=== PATIENT | male | born 1930 | race Caucasian/White ===

== ENCOUNTER 2016-06-05 01:33 | Emergency (ER) | payer MEDICARE, OTHER ==
[~2016-06-05] VITALS: Ht 172.7 cm; Wt 62.7 kg
[~2016-06-05 01:33] MED LIST: ALPR.25 PO; ASPI81TA82 PO; DOXA1 PO
[2016-06-05 01:44] VITALS: BP 104/66; PULSE 94; RESP 14; TEMP 97.9; O2SAT 96
== END 2016-06-05 03:35 | disposition left against medical advice (07) ==
LOC: PHED 01:33
DX: R10.9 Unspecified abdominal pain (principal)
CPT/HCPCS: 99281

== ENCOUNTER 2016-06-07 10:02 | Inpatient (IN) | payer MEDICARE, OTHER ==
[2016-06-07] VITALS (7 sets, daily range): BP systolic 114–135; BP diastolic 76–88; PULSE 81–85; RESP 16–20; TEMP 96.2–97.4; O2SAT 95–98
[2016-06-07] MEDS ORDERED: SODIUM CHLORIDE 0.9% FLUSH 5 ML FLUSH IVF PRN (10:15)
[2016-06-07] MEDS ORDERED: ASPI1TAB69 PO (10:21)
[2016-06-07] MEDS ORDERED: DOXA1TAB35 PO (10:21)
--- NOTE | 2016-06-07 10:25 | PD ---
HPI Chief Complaint: Abdominal Pain Time Seen by Provider: 10:08 Travel History International Travel<30 days: No Contact w/Intl Traveler<30days: No Traveled to known affect area: No History of Present Illness HPI Patient 86-year-old male with history of mild dementia presents to emergency department today for evaluation of left lower quadrant abdominal pain intermittent over the past 4-5 days. He is a coming by his . Patient states that whenever he eats his abdomen and left lower quadrant hurts him whenever his stomach is empty feels better. Patient states that he came here yesterday and the weight was 3 hours and he didn't want to wait that long and left without being seen. This morning he started complaining of abdominal pain again and his called 911 to bring him to the emergency department. Patient currently states he is not having any abdominal pain at all. No fevers no diarrhea no constipation no blood in the stool per the patient. Patient's arrives and states that he does have a history of some mild dementia and she became concerned as the abdominal pain has lasted this long and wanted him to be seen today. PFSH Past Medical History Arthritis: No Asthma: No Autoimmune Disease: No Blood Disorders: No Anxiety: Yes Depression: No Heart Rhythm Problems: No Cancer: No Cardiovascular Problems: No High Cholesterol: Yes Chemotherapy: No Chest Pain: Yes Congestive Heart Failure: No COPD: No Cerebrovascular Accident: Yes (TIA ) Diabetes: No Diminished Hearing: Yes Endocrine: No Gastrointestinal Disorders: Yes (ENLARGED PROSTATE) GERD: No Glaucoma: No Genitourinary: Yes Headaches: No Hepatitis: No Hiatal Hernia: No Heparin Induced Thrombocytopen: No Hypertension: Yes Immune Disorder: No Implanted Vascular Access Dvce: No Kidney Stones: No Musculoskeletal: Yes (BPH) Neurologic: Yes Psychiatric: Yes Reproductive: No Respiratory: No Immunizations Current: Yes Migraines: No Myocardial Infarction: No Radiation Therapy: No Renal Failure: No Seizures: No Sickle Cell Disease: No Sleep Apnea: No Thyroid Disease: No Ulcer: No PNEUMOCCOCAL Vaccine (Year): 2 Past Surgical History Abdominal Surgery: No AICD: No Appendectomy: No Arteriovenous Shunt: No Cardiac Surgery: No Cholecystectomy: No Ear Surgery: No Endocrine Surgery: No Eye Surgery: Yes (CATARACTS BOTH EYES) Genitourinary Surgery: Yes (PROSTATE (LASER) SURGERY X 2) Gynecologic Surgery: No Insulin Pump: No Joint Replacement: No Neurologic Surgery: No Oral Surgery: No Pacemaker: No Thoracic Surgery: No Other Surgery: Yes Social History Alcohol Use: No Tobacco Use: No Substance Use: No Allergies-Medications (Allergen,Severity, Reaction): Coded Allergies: Scallop (Verified Adverse Reaction, Mild, NAUSEA, 06/07/16) Reported Meds & Prescriptions Reported Meds & Active Scripts Active Reported Doxazosin (Doxazosin Mesylate) 2 Mg Tab 2 Mg PO HS Aspirin 81 Mg Tabdr 81 Mg PO DAILY Review of Systems Except as stated in HPI: all other systems reviewed are Neg Physical Exam Narrative GENERAL: Well-developed, thin but in no apparent distress. SKIN: Warm and dry. HEAD: Atraumatic. Normocephalic. EYES: Pupils equal and round. No scleral icterus. No injection or drainage. ENT: No nasal bleeding or discharge. Mucous membranes pink and moist. NECK: Trachea midline. No JVD. CARDIOVASCULAR: Regular rate but irregularly irregular.. No murmur appreciated. 2+ bilateral equal pulses in all 4 extremities. RESPIRATORY: No accessory muscle use. Clear to auscultation. Breath sounds equal bilaterally. GASTROINTESTINAL: Abdomen soft, moderately tender in the left lower quadrant without any rebound or percussive tenderness. nondistended. Hepatic and splenic margins not palpable. Skin normal. MUSCULOSKELETAL: No obvious deformities. No clubbing. No cyanosis. Minimal edema in bilateral lower extremities. NEUROLOGICAL: Awake and alert. No obvious cranial nerve deficits. Motor grossly within normal limits. Normal speech. PSYCHIATRIC: Appropriate mood and affect; insight and judgment normal. Data Data Last Documented VS Vital Signs Date Time Temp Pulse Resp B/P Pulse Ox O2 Delivery O2 Flow Rate FiO2 06/07/16 13:03 85 18 131/88 98 Room Air 06/07/16 10:13 97.4 Orders Complete Blood Count With Diff (06/07/16 10:08) Comprehensive Metabolic Panel (06/07/16 10:08) Lipase (06/07/16 10:08) Lactic Acid (06/07/16 10:08) Prothrombin Time / Inr (Pt) (06/07/16 10:08) Act Partial Throm Time (Ptt) (06/07/16 10:08) Urinalysis - C+S If Indicated (06/07/16 10:08) Ct Abd/Pel W Iv Contrast(Rout) (06/07/16 10:08) Iv Access Insert/Monitor (06/07/16 10:08) Ecg Monitoring (06/07/16 10:08) Oximetry (06/07/16 10:08) Sodium Chloride 0.9% Flush (Ns Flush) (06/07/16 10:15) Electrocardiogram (06/07/16 10:08) Troponin I (06/07/16 10:41) Iohexol 350 Inj (Omnipaque 350 Inj) (06/07/16 11:52) Chest, Single Ap (06/07/16 ) Sodium Chlorid 0.9% 500 Ml Inj (Ns 500 M (06/07/16 12:30) Admit Order (Ed Use Only) (06/07/16 ) Labs Laboratory Tests Test 06/07/16 10:38 White Blood Count 21.3 TH/MM3 Red Blood Count 7.00 MIL/MM3 Hemoglobin 16.4 GM/DL Hematocrit 52.5 % Mean Corpuscular Volume 74.9 FL Mean Corpuscular Hemoglobin 23.4 PG Mean Corpuscular Hemoglobin 31.2 % Concent Red Cell Distribution Width 19.6 % Platelet Count 426 TH/MM3 Mean Platelet Volume 9.0 FL Neutrophils (%) (Auto) 85.4 % Lymphocytes (%) (Auto) 4.1 % Monocytes (%) (Auto) 3.5 % Eosinophils (%) (Auto) 3.3 % Basophils (%) (Auto) 3.7 % Neutrophils # (Auto) 18.1 TH/MM3 Lymphocytes # (Auto) 0.9 TH/MM3 Monocytes # (Auto) 0.7 TH/MM3 Eosinophils # (Auto) 0.7 TH/MM3 Basophils # (Auto) 0.8 TH/MM3 CBC Comment AUTO DIFF Differential Comment AUTO DIFF CONFIRMED Prothrombin Time 20.2 SEC Prothromb Time International 1.8 RATIO Ratio Activated Partial 58.3 SEC Thromboplast Time Urine Collection Type CLEAN CATCH Urine Color YELLOW Urine Turbidity CLEAR Urine pH 5.5 Urine Specific [place] 1.018 Urine Protein NEG mg/dL Urine Glucose (UA) NEG mg/dL Urine Ketones NEG mg/dL Urine Occult Blood NEG Urine Nitrite NEG Urine Bilirubin NEG Urine Leukocyte Esterase TRACE Urine RBC 0-3 /hpf Urine WBC 0-2 /hpf Urine Squamous Epithelial 0-5 /hpf Cells Microscopic Urinalysis Comment CULT NOT INDICATED Sodium Level 140 MEQ/L Potassium Level 4.4 MEQ/L Chloride Level 105 MEQ/L Carbon Dioxide Level 27.9 MEQ/L Anion Gap 7 MEQ/L Blood Urea Nitrogen 35 MG/DL Creatinine 1.60 MG/DL Estimat Glomerular Filtration 41 ML/MIN Rate Random Glucose 73 MG/DL Lactic Acid Level 0.9 mmol/L Calcium Level 8.1 MG/DL Total Bilirubin 2.0 MG/DL Aspartate Amino Transf 9 U/L (AST/SGOT) Alanine Aminotransferase 8 U/L (ALT/SGPT) Alkaline Phosphatase 40 U/L Troponin I LESS THAN 0.02 NG/ML Total Protein 5.0 GM/DL Albumin 3.0 GM/DL Lipase 50 U/L [facility] Medical Decision Making Medical Screen Exam Complete: Yes Emergency Medical Condition: Yes Interpretation(s) EKG shows 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 Patient has indeterminate access and normal R-wave progression. No concerning ST T changes. This is an abnormal EKG. comparison to 09/10/2015 patient now and second degree type I otherwise no significant change. A monitor patient is atrial fibrillation with no discernible P waves. Differential Diagnosis Kidney stone, diverticulitis, diverticulosis, bowel obstruction, lecture light abnormality, acute kidney injury. Narrative Course Patient was roomed in the emergency department, suspicion for diverticulitis given his history that his pain gets worse when he eats. Pain is predominantly in the left lower quadrant. Patient is a history of dementia but gives a fairly accurate history which his confirms. CT scan does show an obstructing 4 mm kidney stone in the mid ureter on the left side which could explain his symptoms but certainly would not explain while his pain gets worse when he eats. Patient was discussed with Dr. Cao who is on-call for the urology service and currently the patient would like to try passage on his own. For that reason he can stay in [facility]. 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 Dr. Cao will see later this evening. Patient will be admitted to Dr. Preethi العلي. Diagnosis Primary Impression: Abdominal pain Qualified Code: R10.32 - Left lower quadrant pain Additional Impressions: Kidney stone Leukocytosis Admitting Information Admitting Physician Requests: Admit Condition: Stable Saleem Lawrence MDb 9, 2017 10:25
[2016-06-07 10:45] LABS: AUTOMATED NEUTROPHIL # 18.1 TH/MM3 (1.8-7.7); BASOPHIL # 0.8 TH/MM3 (0-0.2); BASOPHIL % 3.7 % (0.0-2.0); EOSINOPHIL # 0.7 TH/MM3 (0-0.4); EOSINOPHIL % 3.3 % (0.0-4.0); HEMATOCRIT 52.5 % (39.0-51.0); LYMPH % 4.1 % (9.0-44.0); LYMPHOCYTE # 0.9 TH/MM3 (1.0-4.8); MEAN CELL VOLUME 74.9 FL (80.0-100.0); MEAN CORPUSCULAR HEMOGLOBIN 23.4 PG (27.0-34.0); MEAN CORPUSCULAR HGB CONC 31.2 % (32.0-36.0); MONO % 3.5 % (0.0-8.0); NEUT % 85.4 % (16.0-70.0); PLATELET COUNT 426 TH/MM3 (150-450); RED CELL DISTRIBUTION WIDTH 19.6 % (11.6-17.2); WHITE BLOOD COUNT 21.3 TH/MM3 (4.0-11.0)
[2016-06-07 10:49] LABS: HEMO FLAGS AUTO DIFF
[2016-06-07 10:54] LABS: BLOOD, URINE NEG (NEG); GLUCOSE,URINE NEG (NEG); KETONE, URINE NEG (NEG); NITRITE,URINE NEG (NEG); PH, URINE 5.5 (5.0-8.5)
[2016-06-07 10:57] LABS: METHOD OF COLLECTION CLEAN CATCH; URINE COLOR YELLOW (YELLW/STRAW)
[2016-06-07 10:58] LABS: COMMENT (UR) CULT NOT INDICATED; CULTURE IF INDICATED CULT NOT INDICATED; RBC, URINE 0-3 /hpf (0-3); SQUAMOUS EPITHELIAL CELL URINE 0-5 /hpf (0-5); WBC, URINE 0-2 /hpf (0-5)
[2016-06-07 11:01] LABS: CHLORIDE 105 MEQ/L (98-107); POTASSIUM 4.4 MEQ/L (3.5-5.1); SODIUM (NA) 140 MEQ/L (136-145)
[2016-06-07 11:05] LABS: ANION GAP 7 MEQ/L (5-15); APTT (PATIENT) 58.3 SEC (24.3-30.1); BICARBONATE 27.9 MEQ/L (21.0-32.0); INTERNATIONAL NORMALIZED RATIO 1.8 RATIO; PROTHROMBIN TIME - PATIENT 20.2 SEC (9.8-11.6)
[2016-06-07 11:06] LABS: BLOOD UREA NITROGEN 35 MG/DL (7-18)
[2016-06-07 11:08] LABS: ALT (GPT) 8 U/L (12-78); AST (GOT) 9 U/L (15-37); GLOMERULAR FILTRATION RATE 41 ML/MIN (>89)
[2016-06-07 11:11] LABS: ALKALINE PHOSPHATASE 40 U/L (45-117)
[2016-06-07 11:13] LABS: SCAN/DIFF AUTO DIFF CONFIRMED
[2016-06-07] MEDS ORDERED: IOHEXOL 350 MG/ML 10 ML VIAL (for RAD DIAG) IV ONE (11:52)
--- NOTE | 2016-06-07 12:21 | RADHPO ---
EXAM DATE/TIME: 06/07/2016 11:39 [facility] COMPARISON: No previous studies available for comparison. INDICATIONS: Left lower quadrant pain. IV CONTRAST: 70 cc Omnipaque 350 (iohexol) IV ORAL CONTRAST: No oral contrast ingested. RADIATION DOSE: 12.21 CTDIvol (mGy) MEDICAL HISTORY: Dementia. Hypertension. Cerebrovascular disease. SURGICAL HISTORY: None. ENCOUNTER: Initial ACUITY: 4 - 6 days PAIN SCALE: 6/10 LOCATION: Left lower quadrant TECHNIQUE: Volumetric scanning of the abdomen and pelvis was performed. Using automated exposure control and ad justment of the mA and/or kV according to patient size, radiation dose was kept as low as reasonably achievable to obtain optimal diagnostic quality images. FINDINGS: There is moderate hydronephrosis on the left with possible 4 mm calcified obstructing calculus in the left distal ureter. There are also multiple larger non-obstructing left renal calculi with the larg est of these measuring 13 mm. Multiple left renal cysts are also noted with the largest measuring 8. 9 cm. There is massive splenomegaly. The spleen measures 21.1 x 12.1 cm in greatest dimension. Thi s results in displacement of the left kidney medially and inferiorly. Cholelithiasis is noted. Some ascites is noted within the pelvis. There is a small left pleural effusion and tiny right pleural effusion. Bibasilar fibrotic scarring and/or atelectasis is noted. The heart is enlarged. Coronary artery calcifications are noted. Dege nerative changes and scoliosis of the lumbar spine are noted. The pancreas is atrophic. The adrenal glands are unremarkable. The right kidney is normal in size and contains several tiny cysts. The a bdominal aorta is calcified and ectatic but demonstrates no significant aneurysmal dilatation. The u rinary bladder is unremarkable. The prostate gland is unremarkable. No pelvic lymphadenopathy is no verónica. CONCLUSION: 1. Moderate hydronephrosis on the left with possible obstructing calcified distal ureteral calculus measuring 4 mm. Clinical correlation is recommended. 2. Massive splenomegaly. 3. Multiple calcified non-obstructing left renal calculi. 4. Bilateral renal cysts. 5. Cholelithiasis. 6. Small left pleural effusion and tiny right pleural effusion. 7. Bibasilar atelectasis and/or fibrotic scarring. 8. Cardiomegaly and coronary artery calcifications. 9. Degenerative changes and scoliosis of the thoracolumbar spine. 10. Minimal ascites within the pelvis. Saleem Juarez MD on June 07, 2016 at 11:59 Board Certified Radiologist. This report was verified electronically.
[2016-06-07] MEDS ORDERED: SODIUM CHLORID 0.9% 500 ML INJ 500 ML IV ONE (12:30)
--- NOTE | 2016-06-07 13:00 | RADHPO ---
EXAM DATE/TIME: 06/07/2016 12:03 [facility] COMPARISON: CHEST SINGLE AP, September 10, 2015, 11:34. INDICATIONS: Cough. Abdominal pain. MEDICAL HISTORY: Hypertension. Hypercholesterolemia. TIA. SURGICAL HISTORY: Cataract surgery. ENCOUNTER: Initial ACUITY: 4 - 6 days PAIN SCORE: 0/10 LOCATION: Chest FINDINGS: The heart remains enlarged. There is elevation of the left hemidiaphragm which is stable. The pulmo nary vascular pattern is normal. The lungs are clear. CONCLUSION: 1. Cardiomegaly. 2. Elevation of the left hemidiaphragm which is chronic. 3. No acute focal pulmonary infiltrate or pulmonary vascular congestion. Saleem Juarez MD on June 07, 2016 at 12:49 Board Certified Radiologist. This report was verified electronically.
[2016-06-07] MEDS: SODIUM CHLOR 0.9% 1000 ML INJ 1,000 ML IV SCH (15:12)
[2016-06-07] MEDS ORDERED: ONDANSETRON HCL 4 MG/2 ML VIAL IVP PRN (15:15)
[2016-06-07] MEDS ORDERED: ACETAMINOPHEN 325 MG TAB PO PRN (15:15)
--- NOTE | 2016-06-07 15:18 | HHI.HP ---
cc: Stone Ordonez MD [facility] Service [place] [facility] Physician Stone Ordonez MD Admission Diagnosis ANN, dehydration. Diagnoses: Chief Complaint: Abdominal pain Travel History International Travel<30 Days: No Contact w/Intl Traveler <30 Da: No Traveled to Known Affected Are: No History of Present Illness This patient's 86-year-old gentleman with a known history of mild cognitive impairment has come in with abdominal pain over the last 4 days. He had some nausea and constipation which was worse when he ate. Patient says that he he has not had any emesis, melena or hematuria to assist in the patient has come to the emergency room 2 days in a row for evaluation of same. He hasn't found to have a 4 mm obstructing renal stone. He does have a history of kidney stone in the past but has not had active one quite some time. Patient notes no fevers or chills or dysuria. He does have a history of benign prostatic hyperplasia but is under treatment for this. Patient was admitted through the emergency room for further evaluation of his severe abdominal pain which is relieved with resting his bowels and aggravated with eating. Review of Systems Constitutional: DENIES: Diaphoretic episodes, Fatigue, Fever, Weight gain, Weight loss, Chills, Dizziness, Change in appetite, Night Sweats Endocrine: DENIES: Heat/cold intolerance, Polydipsia, Polyuria, Polyphagia Eyes: DENIES: Blurred vision, Diplopia, Eye inflammation, Eye pain, Vision loss , Photosensitivity, Double Vision Ears, nose, mouth, throat: DENIES: Tinnitus, Hearing loss, Vertigo, Nasal discharge, Oral lesions, Throat pain, Hoarseness, Ear Pain, Running Nose, Epistaxis, Sinus Pain, Toothache, Odynophagia Respiratory: DENIES: Apneas, Cough, Snoring, Wheezing, Hemoptysis, Sputum production, Shortness of breath Cardiovascular: DENIES: Chest pain, Palpitations, Syncope, Dyspnea on Exertion , PND, Lower Extremity Edema, Orthopnea, Claudication Gastrointestinal: COMPLAINS OF: Abdominal pain, Constipation, Nausea, DENIES: Black stools, Bloody stools, Diarrhea, Vomiting, Difficulty Swallowing, Anorexia Genitourinary: DENIES: Sexual dysfunction, Urinary frequency, Urinary incontinence, Urgency, Hematuria, Dysuria, Nocturia, Penile Discharge, Testicular Pain, Testicular Swelling Musculoskeletal: COMPLAINS OF: Back pain, DENIES: Joint pain, Muscle aches, Stiffness, Joint Swelling, Neck pain Integumentary: DENIES: Abnormal pigmentation, Nail changes, Pruritus, Rash Hematologic/lymphatic: DENIES: Bruising, Lymphadenopathy Immunologic/allergic: DENIES: Eczema, Urticaria Neurologic: DENIES: Abnormal gait, Headache, Localized weakness, Paresthesias, Seizures, Speech Problems, Tremor, Poor Balance Psychiatric: DENIES: Anxiety, Confusion, Mood changes, Depression, Hallucinations, Agitation, Suicidal Ideation, Homicidal Ideation, Delusions Past Family Social History Past Medical History History of CVA Hypertension Chronic kidney disease stage II BPH Splenomegaly Myelogenous leukemia History of kidney stones Past Surgical History Cataract surgery prostate surgery Reported Medications Reviewed in the medical record, nothing new Allergies: Coded Allergies: Scallop (Verified Adverse Reaction, Mild, NAUSEA, 06/07/16) Active Ordered Medications Reviewed in the medical Physical Exam Vital Signs Vital Signs Date Time Temp Pulse Resp B/P Pulse Ox O2 Delivery O2 Flow Rate FiO2 06/07/16 13:03 85 18 131/88 98 Room Air 06/07/16 10:16 98 Room Air 06/07/16 10:13 97.4 84 16 135/84 95 Physical Exam GENERAL: This is an elderly well-nourished, well-developed patient, in no apparent distress. SKIN: No rashes, ecchymoses or lesions. Cool and dry. HEAD: Atraumatic. Normocephalic. No temporal or scalp tenderness. EYES: Pupils equal round and reactive. Extraocular motions intact. No scleral icterus. No injection or drainage. ENT: Nose without bleeding, purulent drainage or septal hematoma. Throat without erythema, tonsillar hypertrophy or exudate. Uvula midline. Airway patent. NECK: Trachea midline. No JVD or lymphadenopathy. Supple, nontender, no meningeal signs. CARDIOVASCULAR: Regular rate and rhythm without murmurs, gallops, or rubs. RESPIRATORY: Clear to auscultation. Breath sounds equal bilaterally. No wheezes , rales, or rhonchi. GASTROINTESTINAL: Abdomen soft, non-tender, nondistended. No hepatosplenomegaly on exam, hypoactive bowel sounds, or palpable masses. No guarding. MUSCULOSKELETAL: Extremities without clubbing, cyanosis, or edema. No joint tenderness, effusion, or edema noted. No calf tenderness. Negative Homans sign bilaterally. NEUROLOGICAL: Awake and alert. Cranial nerves II through XII intact. Motor and sensory grossly within normal limits. Five out of 5 muscle strength in all muscle groups. Normal speech. Laboratory Laboratory Tests Test 06/07/16 10:38 White Blood Count 21.3 Red Blood Count 7.00 Hemoglobin 16.4 Hematocrit 52.5 Mean Corpuscular Volume 74.9 Mean Corpuscular Hemoglobin 23.4 Mean Corpuscular Hemoglobin 31.2 Concent Red Cell Distribution Width 19.6 Platelet Count 426 Mean Platelet Volume 9.0 Neutrophils (%) (Auto) 85.4 Lymphocytes (%) (Auto) 4.1 Monocytes (%) (Auto) 3.5 Eosinophils (%) (Auto) 3.3 Basophils (%) (Auto) 3.7 Neutrophils # (Auto) 18.1 Lymphocytes # (Auto) 0.9 Monocytes # (Auto) 0.7 Eosinophils # (Auto) 0.7 Basophils # (Auto) 0.8 CBC Comment AUTO DIFF Differential Comment AUTO DIFF CONFIRMED Prothrombin Time 20.2 Prothromb Time International 1.8 Ratio Activated Partial 58.3 Thromboplast Time Urine Collection Type CLEAN CATCH Urine Color YELLOW Urine Turbidity CLEAR Urine pH 5.5 Urine Specific [place] 1.018 Urine Protein NEG Urine Glucose (UA) NEG Urine Ketones NEG Urine Occult Blood NEG Urine Nitrite NEG Urine Bilirubin NEG Urine Leukocyte Esterase TRACE Urine RBC 0-3 Urine WBC 0-2 Urine Squamous Epithelial 0-5 Cells Microscopic Urinalysis Comment CULT NOT INDICATED Sodium Level 140 Potassium Level 4.4 Chloride Level 105 Carbon Dioxide Level 27.9 Anion Gap 7 Blood Urea Nitrogen 35 Creatinine 1.60 Estimat Glomerular Filtration 41 Rate Random Glucose 73 Lactic Acid Level 0.9 Calcium Level 8.1 Total Bilirubin 2.0 Aspartate Amino Transf 9 (AST/SGOT) Alanine Aminotransferase 8 (ALT/SGPT) Alkaline Phosphatase 40 Troponin I LESS THAN 0.02 Total Protein 5.0 Albumin 3.0 Lipase 50 Result Diagram: 06/07/16 1038 06/07/16 1038 Imaging Last Impressions Abdomen/Pelvis CT 06/07/16 1008 Signed Impressions: Service Date/Time: May 11:39 - CONCLUSION: 1. Moderate hydronephrosis on the left with possible obstructing calcified distal ureteral calculus measuring 4 mm. Clinical correlation is recommended. 2. Massive splenomegaly. 3. Multiple calcified non-obstructing left renal calculi. 4. Bilateral renal cysts. 5. Cholelithiasis. 6. Small left pleural effusion and tiny right pleural effusion. 7. Bibasilar atelectasis and/or fibrotic scarring. 8. Cardiomegaly and coronary artery calcifications. 9. Degenerative changes and scoliosis of the thoracolumbar spine. 10. Minimal ascites within the pelvis. Saleem Juarez MD Chest X-Ray 06/07/16 0000 Signed Impressions: Service Date/Time: , June 07, 2016 12:03 - CONCLUSION: 1. Cardiomegaly. 2. Elevation of the left hemidiaphragm which is chronic. 3. No acute focal pulmonary infiltrate or pulmonary vascular congestion. Saleem Juarez MD Assessment and Plan Problem List: (1) Chronic myelogenous leukemia (CML), [id number] ICD Code: C92.10 Status: Acute Plan: Patient has refused prior workup of this although he is aware of the diagnosis. At this time we'll continue with surveillance (2) Kidney stone ICD Code: N20.0 Status: Acute Plan: Continue with IV hydration, follow up straining urine Urology consultation appreciated (3) Abdominal pain ICD Code: R10.9 Status: Acute Plan: may be due to constipation IVF add lactulose Physician Certification 2 Midnight Certification Type: Admission for Inpatient Services Order for Inpatient Services The services are ordered in accordance with Medicare regulations or non- Medicare payer requirements, as applicable. In the case of services not specified as inpatient-only, they are appropriately provided as inpatient services in accordance with the 2-midnight benchmark. Estimated LOS (days): 5 5 days is the estimated time the patient will need to remain in the hospital, assuming treatment plan goals are met and no additional complications. Post-Hospital Plan: Preethi Gould MD Jun 07, 2016 15:18
[2016-06-07] MEDS: PANTOPRAZOLE SOD 40 MG DELAYED RELEASE TAB PO SCH (16:32)
[2016-06-07] MEDS: cefTRIAXone INJ 1,000 MG in SODIUM CHLORIDE 0.9% INJ 100 ML IV SCH (16:32)
[2016-06-07] MEDS: LACTULOSE SYRUP 20 GM/30 ML CUP PO SCH ×2 (17:37→20:54)
[2016-06-07] MEDS: SODIUM CHLORIDE 0.9% FLUSH 5 ML FLUSH FLUSH SCH (20:54)
[2016-06-08] VITALS: BP 116/66; PULSE 80; RESP 20; TEMP 96.7; O2SAT 97
[2016-06-08] MEDS: SODIUM CHLOR 0.9% 1000 ML INJ 1,000 ML IV SCH ×3 (01:12→21:12)
[2016-06-08 06:37] LABS: AUTOMATED NEUTROPHIL # 21.1 TH/MM3 (1.8-7.7); BASOPHIL # 0.3 TH/MM3 (0-0.2); BASOPHIL % 1.3 % (0.0-2.0); EOSINOPHIL # 0.7 TH/MM3 (0-0.4); LYMPH % 3.7 % (9.0-44.0); LYMPHOCYTE # 0.9 TH/MM3 (1.0-4.8); MEAN CELL VOLUME 75.6 FL (80.0-100.0); MEAN CORPUSCULAR HEMOGLOBIN 23.3 PG (27.0-34.0); MEAN CORPUSCULAR HGB CONC 30.8 % (32.0-36.0); MONO % 3.2 % (0.0-8.0); NEUT % 88.8 % (16.0-70.0); PLATELET COUNT 545 TH/MM3 (150-450); RED CELL DISTRIBUTION WIDTH 19.8 % (11.6-17.2); WHITE BLOOD COUNT 23.8 TH/MM3 (4.0-11.0)
[2016-06-08 06:47] LABS: HEMATOCRIT 58.8 % (39.0-51.0); HEMO FLAGS AUTO DIFF; RED BLOOD COUNT 7.78 MIL/MM3 (4.50-5.90)
[2016-06-08 06:58] LABS: POTASSIUM 4.5 MEQ/L (3.5-5.1)
[2016-06-08 07:01] LABS: BICARBONATE 26.7 MEQ/L (21.0-32.0)
[2016-06-08 07:18] LABS: SCAN/DIFF AUTO DIFF CONFIRMED
[2016-06-08 07:50] VITALS: O2SAT 96
[2016-06-08 08:00] VITALS: BP 109/73; PULSE 85; RESP 18; TEMP 96.2; O2SAT 96
[2016-06-08] MEDS: LACTULOSE SYRUP 20 GM/30 ML CUP PO SCH ×2 (08:30→11:13)
[2016-06-08] MEDS: PANTOPRAZOLE SOD 40 MG DELAYED RELEASE TAB PO SCH (08:33)
[2016-06-08] MEDS: SODIUM CHLORIDE 0.9% FLUSH 5 ML FLUSH FLUSH SCH ×2 (08:33→20:15)
--- NOTE | 2016-06-08 10:25 | HHI.PR ---
Subjective Remarks Patient still complaining of abdominal pain worse when he eats. Patient without nausea or vomiting. No flank pain. Care plan discussed with Heidi RN and with spouse at bedside. Dr. Cao, urology is aware and has recommended patient attempted to pass a stone in follow-up as an outpatient. Objective Vitals Vital Signs Date Time Temp Pulse Resp B/P Pulse Ox O2 Delivery O2 Flow Rate FiO2 06/08/16 08:00 96.2 85 18 109/73 96 06/08/16 00:00 96.7 80 20 116/66 97 Automatic Cuff 06/07/16 20:00 96.2 85 20 114/84 95 06/07/16 19:50 97 06/07/16 17:18 97 21 06/07/16 15:52 81 18 132/76 97 Room Air 06/07/16 13:03 85 18 131/88 98 Room Air I/O 06/07/16 06/07/16 06/07/16 06/08/16 06/08/16 06/08/16 07:00 15:00 23:00 07:00 15:00 23:00 Intake Total 500 ml 120 ml 60 ml Output Total 200 ml 80 ml 525 ml Balance 300 ml 40 ml -465 ml Intake Oral 120 ml 60 ml IV Total 500 ml Output Urine Total 200 ml 80 ml 525 ml # Voids 1 1 5 # Bowel Movements 3 0 Result Diagram: 06/08/16 0558 06/08/16 0558 Imaging Last Impressions Abdomen/Pelvis CT 06/07/16 1008 Signed Impressions: Service Date/Time: May 11:39 - CONCLUSION: 1. Moderate hydronephrosis on the left with possible obstructing calcified distal ureteral calculus measuring 4 mm. Clinical correlation is recommended. 2. Massive splenomegaly. 3. Multiple calcified non-obstructing left renal calculi. 4. Bilateral renal cysts. 5. Cholelithiasis. 6. Small left pleural effusion and tiny right pleural effusion. 7. Bibasilar atelectasis and/or fibrotic scarring. 8. Cardiomegaly and coronary artery calcifications. 9. Degenerative changes and scoliosis of the thoracolumbar spine. 10. Minimal ascites within the pelvis. Saleem Juarez MD Chest X-Ray 06/07/16 0000 Signed Impressions: Service Date/Time: May 12:03 - CONCLUSION: 1. Cardiomegaly. 2. Elevation of the left hemidiaphragm which is chronic. 3. No acute focal pulmonary infiltrate or pulmonary vascular congestion. Saleem Juarez MD Objective Remarks GENERAL: This is a elderly, well-developed patient, in no apparent distress. CARDIOVASCULAR: Regular rate and rhythm without murmurs, gallops, or rubs. RESPIRATORY: Clear to auscultation. Breath sounds equal bilaterally. No wheezes , rales, or rhonchi. GASTROINTESTINAL: Abdomen soft, RUQ is tender, nondistended. hypo active bowel sounds MUSCULOSKELETAL: Erythema in both legs tian down, some swelling, no pain, upper Extremities without clubbing, cyanosis, or edema. NEURO: Mild dementia, [place], Alert & Oriented x4 to person, place, time, situation. Moves all ext x4 A/P Problem List: (1) Chronic myelogenous leukemia (CML), [id number] ICD Code: C92.10 Status: Acute Plan: Patient has chronic leukocytosis and splenomegaly Patient has refused prior workup of this although he is aware of the diagnosis. At this time we'll continue with surveillance Is unclear the worsening leukocytosis from his CML versus sepsis. Rule out acute cholecystitis, urine is clear, chest x-ray is unremarkable (2) Kidney stone ICD Code: N20.0 Status: Acute Plan: Continue with IV hydration, follow up straining urine Urology aware. Patient will follow-up as an outpatient if no change condition (3) Abdominal pain ICD Code: R10.9 Status: Acute Plan: may be due to constipation versus gallbladder disease Repeat LFTs in a.m. Ultrasound gallbladder IVF BM x3 with lactulose Add Morphine IV Assessment and Plan Issues with cognitive impairment/mild dementia. His is his power of trial attorney. Preethi العلي MD Jun 08, 2016 10:25
[2016-06-08] MEDS ORDERED: MORPHINE SULFATE 4 MG/ML INJ IV PUSH ONE (10:30)
[2016-06-08] MEDS: CIPROFLOXACIN 400 MG PREMIX 200 ML IV SCH ×2 (11:13→23:43)
[2016-06-08 12:00] VITALS: BP 105/64; PULSE 76; RESP 18; TEMP 96.5; O2SAT 97
[2016-06-08 16:00] VITALS: BP 131/78; PULSE 98; RESP 18; TEMP 97.3; O2SAT 97
[2016-06-08] MEDS: cefTRIAXone INJ 1,000 MG in SODIUM CHLORIDE 0.9% INJ 100 ML IV SCH (16:52)
--- NOTE | 2016-06-08 18:46 | RADHPO ---
EXAM DATE/TIME: 06/08/2016 17:19 [place] COMPARISON: No previous studies available for comparison. INDICATIONS : Right upper quadrant pain. MEDICAL HISTORY : Hypercholesterolemia. Hypertension. Transient ischemic attack. Kidney stones. BPH. SURGICAL HISTORY : Cataract removal. Prostate surgery. ENCOUNTER: Initial ACUITY: 1 day PAIN SCORE: 5/10 LOCATION: Right upper quadrant MEASUREMENTS: LIVER: 19.0 cm length COMMON DUCT: 7 mm RIGHT KIDNEY: 10.9 x 5.0 x 5.8 cm FINDINGS: The wall of the gallbladder is thickened. Pericholecystic fluid is noted. No sonographic Omalley's si gn is noted. If there is clinical concern for acute cholecystitis a hepatobiliary scan may be helpfu l to confirm cystic duct obstruction. Gallstones are noted within the gallbladder lumen. The liver is enlarged. There is a cyst within the left lobe measuring 1.7 x 1.6 x 1.3 cm. There is no solid he patic mass. No biliary ductal dilatation is noted. The common bile duct is normal. The pancreas is echogenic and difficult to evaluate due to shadowing bowel gas. Bidirectional flow is noted within the main portal vein. The main portal vein appears somewhat dilated. The right kidney contains two cystic lesions measuring 9 and 7 mm. No hydronephrosis is noted within the right kidney. There is m ild to moderate hydronephrosis of the left kidney with shadowing calculi identified as well as a larg e renal cyst on the left measuring 9.3 cm. CONCLUSION: 1. Thick-walled gallbladder with pericholecystic fluid suggesting possible cholecystitis. Clinical c orrelation is recommended. A hepatobiliary scan may be helpful to confirm cystic duct obstruction if clinically indicated. 2. Hydronephrosis of the left kidney with multiple renal calculi noted on the left. The largest calc james measure 16 and 14 mm. 3. Large left renal cyst measuring 9.3 cm. 4. Hepatomegaly and mild fatty infiltration. 5. Bidirectional flow within a dilated main portal vein. 6. Left lobe hepatic cyst and right renal cysts. Saleem Juarez MD on June 08, 2016 at 18:34 Board Certified Radiologist. This report was verified electronically.
[2016-06-08 19:37] VITALS: O2SAT 94
[2016-06-09] VITALS (7 sets, daily range): BP systolic 113–131; BP diastolic 65–85; PULSE 80–94; RESP 16–20; TEMP 96–97.8; O2SAT 93–97
[2016-06-09] MEDS: SODIUM CHLOR 0.9% 1000 ML INJ 1,000 ML IV SCH ×3 (07:12→20:11)
--- NOTE | 2016-06-09 08:53 | EKG ---
Date Performed: 06/07/2016 Time Performed: 10:17:14 PTAGE: 86 years EKG: First degree AV block with CO interval of 0.30 Right bundle branch block Nonspecific ST-T c hange Possible inferior infarct - age undetermined Abnormal ECG PREVIOUS TRACING : 09/10/2015 11.14 Compared to previous tracing, PVCs are no longer present. O therwise, no significant change. DOCTOR: Maxwell Du Interpretating Date/Time 06/09/2016 08:52:03
[2016-06-09] MEDS: SODIUM CHLORIDE 0.9% FLUSH 5 ML FLUSH FLUSH SCH ×2 (09:00→20:15)
[2016-06-09] MEDS: PANTOPRAZOLE SOD 40 MG DELAYED RELEASE TAB PO SCH (09:16)
[2016-06-09] MEDS ORDERED: MORPHINE SULFATE 4 MG/ML INJ IV PUSH PRN (11:30)
--- NOTE | 2016-06-09 11:32 | HHI.PR ---
Subjective Remarks Patient is seen today in follow-up for abdominal pain. Abdominal pain is better after extended bowel rest and with liquid diet. Gallbladder disease noted on ultrasound. Care plan and surgical consult of discussed with patient and spouse at bedside. Patient's pain has improved with IV morphine Objective Vitals Vital Signs Date Time Temp Pulse Resp B/P Pulse Ox O2 Delivery O2 Flow Rate FiO2 06/09/16 10:50 94 21 06/09/16 08:00 96.1 94 20 116/76 94 06/09/16 04:30 97.8 84 16 119/65 94 06/08/16 20:00 06/08/16 19:37 94 21 06/08/16 16:00 97.3 98 18 131/78 97 06/08/16 16:00 97.3 98 18 131/78 97 06/08/16 12:00 96.5 76 18 105/64 97 I/O 06/08/16 06/08/16 06/08/16 06/09/16 06/09/16 06/09/16 07:00 15:00 23:00 07:00 15:00 23:00 Intake Total 60 ml 1000 ml Output Total 525 ml 100 ml Balance -465 ml 1000 ml -100 ml Intake Oral 60 ml IV Total 1000 ml Output Urine Total 525 ml 100 ml # Voids 5 # Bowel Movements 0 Result Diagram: 06/08/16 0558 06/08/16 0558 Imaging Last Impressions Gall Bladder Ultrasound 06/08/16 0000 Signed Impressions: Service Date/Time: Wednesday, June 08, 2016 17:19 - CONCLUSION: 1. Thick-walled gallbladder with pericholecystic fluid suggesting possible cholecystitis. Clinical correlation is recommended. A hepatobiliary scan may be helpful to confirm cystic duct obstruction if clinically indicated. 2. Hydronephrosis of the left kidney with multiple renal calculi noted on the left. The largest calculi measure 16 and 14 mm. 3. Large left renal cyst measuring 9.3 cm. 4. Hepatomegaly and mild fatty infiltration. 5. Bidirectional flow within a dilated main portal vein. 6. Left lobe hepatic cyst and right renal cysts. Saleem Juarez MD Abdomen/Pelvis CT 06/07/16 1008 Signed Impressions: Service Date/Time: May 11:39 - CONCLUSION: 1. Moderate hydronephrosis on the left with possible obstructing calcified distal ureteral calculus measuring 4 mm. Clinical correlation is recommended. 2. Massive splenomegaly. 3. Multiple calcified non-obstructing left renal calculi. 4. Bilateral renal cysts. 5. Cholelithiasis. 6. Small left pleural effusion and tiny right pleural effusion. 7. Bibasilar atelectasis and/or fibrotic scarring. 8. Cardiomegaly and coronary artery calcifications. 9. Degenerative changes and scoliosis of the thoracolumbar spine. 10. Minimal ascites within the pelvis. Saleem Juarez MD Chest X-Ray 06/07/16 0000 Signed Impressions: Service Date/Time: May 12:03 - CONCLUSION: 1. Cardiomegaly. 2. Elevation of the left hemidiaphragm which is chronic. 3. No acute focal pulmonary infiltrate or pulmonary vascular congestion. Saleem Juarez MD Objective Remarks GENERAL: This is a elderly, well-developed patient, in no apparent distress. CARDIOVASCULAR: Regular rate and rhythm without murmurs, gallops, or rubs. RESPIRATORY: Clear to auscultation. Breath sounds equal bilaterally. No wheezes , rales, or rhonchi. GASTROINTESTINAL: Abdomen soft, RUQ is less tender, nondistended. hypo active bowel sounds MUSCULOSKELETAL: Erythema in both legs tian down, some swelling, no pain, upper Extremities without clubbing, cyanosis, or edema. NEURO: Mild dementia, [place], Alert & Oriented x4 to person, place, time, situation. Moves all ext x4 A/P Problem List: (1) Chronic myelogenous leukemia (CML), [id number] ICD Code: C92.10 Status: Chronic Plan: Patient has chronic leukocytosis and splenomegaly Patient has refused prior workup of this although he is aware of the diagnosis. likely elevated wbc's due to acute cholecystitis (2) Kidney stone ICD Code: N20.0 Status: Acute Plan: Continue with IV hydration, follow up straining urine Urology aware. Patient will follow-up as an outpatient if no change condition (3) Abdominal pain ICD Code: R10.9 Status: Acute Plan: Liquid diet Repeat LFTs pending Ultrasound gallbladder for acute cholecystitis, general surgery consult pending IVF improved with Morphine IV cont cipro/flagyl Assessment and Plan Issues with cognitive impairment/mild dementia. His is his power of tax attorney. Preethi العلي MD Jun 09, 2016 11:32
[2016-06-09] MEDS: CIPROFLOXACIN 400 MG PREMIX 200 ML IV SCH (11:39)
[2016-06-09] MEDS: metroNIDAZOLE 500 MG INJ 100 ML IV SCH ×2 (12:52→20:11)
[2016-06-10] VITALS (8 sets, daily range): BP systolic 117–135; BP diastolic 71–77; PULSE 65–100; RESP 18–20; TEMP 95.7–97.4; O2SAT 92–97
[2016-06-10] MEDS: CIPROFLOXACIN 400 MG PREMIX 200 ML IV SCH ×3 (00:06→22:38)
[2016-06-10] MEDS: metroNIDAZOLE 500 MG INJ 100 ML IV SCH ×3 (05:45→20:36)
[2016-06-10 07:21] LABS: AUTOMATED NEUTROPHIL # 9.6 TH/MM3 (1.8-7.7); BASOPHIL % 0.1 % (0.0-2.0); EOSINOPHIL # 0.1 TH/MM3 (0-0.4); EOSINOPHIL % 0.9 % (0.0-4.0); HEMATOCRIT 37.5 % (39.0-51.0); LYMPH % 7.8 % (9.0-44.0); MEAN CELL VOLUME 95.5 FL (80.0-100.0); MEAN CORPUSCULAR HEMOGLOBIN 31.9 PG (27.0-34.0); MEAN CORPUSCULAR HGB CONC 33.4 % (32.0-36.0); NEUT % 78.2 % (16.0-70.0); PLATELET COUNT 289 TH/MM3 (150-450); RED BLOOD COUNT 3.93 MIL/MM3 (4.50-5.90); RED CELL DISTRIBUTION WIDTH 13.2 % (11.6-17.2); WHITE BLOOD COUNT 12.3 TH/MM3 (4.0-11.0)
[2016-06-10 07:26] LABS: HEMO FLAGS DIFF FINAL
--- NOTE | 2016-06-10 07:49 | HHI.PR ---
Subjective Remarks Patient seen and evaluated in follow-up for acute cholecystitis. Abdominal pain better. Care plan discussed with surgery team this morning. No new events overnight. Leukocytosis improved. Objective Vitals Vital Signs Date Time Temp Pulse Resp B/P Pulse Ox O2 Delivery O2 Flow Rate FiO2 06/10/16 04:00 95.7 84 20 121/75 92 06/10/16 00:00 96.9 100 20 135/74 93 06/09/16 20:40 94 21 06/09/16 20:00 97.1 80 18 131/77 94 06/09/16 16:00 97.6 92 20 113/85 93 06/09/16 12:00 96.0 88 20 119/73 97 06/09/16 10:50 94 21 06/09/16 08:00 96.1 94 20 116/76 94 I/O 06/09/16 06/09/16 06/09/16 06/10/16 06/10/16 06/10/16 07:00 15:00 23:00 07:00 15:00 23:00 Intake Total 500 ml 240 ml 280 ml Output Total 100 ml 200 ml Balance -100 ml 500 ml 40 ml 280 ml Intake Oral 240 ml 280 ml IV Total 500 ml Output Urine Total 100 ml 200 ml # Voids 2 # Bowel Movements 0 0 Result Diagram: 06/10/16 0652 06/08/16 0558 Imaging Last Impressions Gall Bladder Ultrasound 06/08/16 0000 Signed Impressions: Service Date/Time: Wednesday, June 08, 2016 17:19 - CONCLUSION: 1. Thick-walled gallbladder with pericholecystic fluid suggesting possible cholecystitis. Clinical correlation is recommended. A hepatobiliary scan may be helpful to confirm cystic duct obstruction if clinically indicated. 2. Hydronephrosis of the left kidney with multiple renal calculi noted on the left. The largest calculi measure 16 and 14 mm. 3. Large left renal cyst measuring 9.3 cm. 4. Hepatomegaly and mild fatty infiltration. 5. Bidirectional flow within a dilated main portal vein. 6. Left lobe hepatic cyst and right renal cysts. Saleem Juarez MD Abdomen/Pelvis CT 06/07/16 1008 Signed Impressions: Service Date/Time: May 11:39 - CONCLUSION: 1. Moderate hydronephrosis on the left with possible obstructing calcified distal ureteral calculus measuring 4 mm. Clinical correlation is recommended. 2. Massive splenomegaly. 3. Multiple calcified non-obstructing left renal calculi. 4. Bilateral renal cysts. 5. Cholelithiasis. 6. Small left pleural effusion and tiny right pleural effusion. 7. Bibasilar atelectasis and/or fibrotic scarring. 8. Cardiomegaly and coronary artery calcifications. 9. Degenerative changes and scoliosis of the thoracolumbar spine. 10. Minimal ascites within the pelvis. Saleem Juarez MD Chest X-Ray 06/07/16 0000 Signed Impressions: Service Date/Time: , June 07, 2016 12:03 - CONCLUSION: 1. Cardiomegaly. 2. Elevation of the left hemidiaphragm which is chronic. 3. No acute focal pulmonary infiltrate or pulmonary vascular congestion. Saleem Juarez MD Objective Remarks GENERAL: This is a elderly, well-developed patient, in no apparent distress. CARDIOVASCULAR: Regular rate and rhythm without murmurs, gallops, or rubs. RESPIRATORY: Clear to auscultation. Breath sounds equal bilaterally. No wheezes , rales, or rhonchi. GASTROINTESTINAL: Abdomen soft, RUQ is less tender, nondistended. hypo active bowel sounds MUSCULOSKELETAL: Erythema in both legs tian down, some swelling, no pain, upper Extremities without clubbing, cyanosis, or edema. NEURO: Mild to moderate dementia, [place], Alert & Oriented x4 to person, place, time, situation. Moves all ext x4 A/P Problem List: (1) Chronic myelogenous leukemia (CML), [id number] ICD Code: C92.10 Status: Chronic Plan: Patient has chronic leukocytosis and splenomegaly Patient has refused prior treatment of this although he is aware of the diagnosis. likely elevated wbc's due to acute cholecystitis (2) Kidney stone ICD Code: N20.0 Status: Acute Plan: Continue with IV hydration, follow up straining urine Urology aware. Patient will follow-up as an outpatient if no change condition (3) Abdominal pain ICD Code: R10.9 Status: Acute Plan: Liquid diet may advance to low fat in am Repeat LFTs pending Ultrasound gallbladder for acute cholecystitis, general surgery consult appreciated (spoke with Dr. Marcus); rec: abx, observation and if no improvement consider surg options'(patient and family would like non-surgical options) IVF improved with Morphine IV cont cipro/flagyl Assessment and Plan Issues with cognitive impairment/mild dementia. His is his power of environmental attorney. Problem Qualifiers (1) Abdominal pain: Qualified Code: R10.32 - Left lower quadrant pain Preethi العلي MD Jun 10, 2016 07:49
[2016-06-10 08:30] LABS: ALKALINE PHOSPHATASE 50 U/L (45-117); ALT (GPT) 9 U/L (12-78); ANION GAP 10 MEQ/L (5-15); AST (GOT) 12 U/L (15-37); BICARBONATE 29.3 MEQ/L (21.0-32.0); BLOOD UREA NITROGEN 8 MG/DL (7-18); CHLORIDE 99 MEQ/L (98-107); GLOMERULAR FILTRATION RATE 136 ML/MIN (>89); POTASSIUM 3.4 MEQ/L (3.5-5.1); SODIUM (NA) 138 MEQ/L (136-145); TOTAL BILIRUBIN ADULT 0.4 MG/DL (0.2-1.0)
[2016-06-10] MEDS ORDERED: oxyCODONE/ACETAMINOPHEN 5 MG/325 MG TAB PO PRN (08:45)
[2016-06-10] MEDS: PANTOPRAZOLE SOD 40 MG DELAYED RELEASE TAB PO SCH (09:00)
[2016-06-10] MEDS: SODIUM CHLORIDE 0.9% FLUSH 5 ML FLUSH FLUSH SCH ×2 (09:00→20:36)
[2016-06-10] MEDS: SODIUM CHLOR 0.9% 1000 ML INJ 1,000 ML IV SCH ×2 (14:30→20:36)
[2016-06-10] MEDS: SODIUM CHLORIDE 0.9% FLUSH 5 ML FLUSH FLUSH PRN (22:38)
[2016-06-11] VITALS: BP 133/79; PULSE 80; RESP 18; TEMP 97.7; O2SAT 96
[2016-06-11] MEDS: SODIUM CHLORIDE 0.9% FLUSH 5 ML FLUSH FLUSH PRN (05:18)
[2016-06-11] MEDS: metroNIDAZOLE 500 MG INJ 100 ML IV SCH (05:18)
[2016-06-11 06:57] LABS: AUTOMATED NEUTROPHIL # 19.1 TH/MM3 (1.8-7.7); BASOPHIL # 0.1 TH/MM3 (0-0.2); BASOPHIL % 0.4 % (0.0-2.0); EOSINOPHIL # 0.7 TH/MM3 (0-0.4); EOSINOPHIL % 3.4 % (0.0-4.0); HEMATOCRIT 54.5 % (39.0-51.0); LYMPH % 2.6 % (9.0-44.0); LYMPHOCYTE # 0.5 TH/MM3 (1.0-4.8); MEAN CELL VOLUME 75.5 FL (80.0-100.0); MEAN CORPUSCULAR HEMOGLOBIN 23.1 PG (27.0-34.0); MEAN CORPUSCULAR HGB CONC 30.6 % (32.0-36.0); MONO % 2.8 % (0.0-8.0); NEUT % 90.8 % (16.0-70.0); PLATELET COUNT 313 TH/MM3 (150-450); RED CELL DISTRIBUTION WIDTH 21.9 % (11.6-17.2)
[2016-06-11 07:11] LABS: HEMO FLAGS AUTO DIFF; RED BLOOD COUNT 6.96 MIL/MM3 (4.50-5.90)
[2016-06-11 07:20] LABS: ALKALINE PHOSPHATASE 39 U/L (45-117); ALT (GPT) LESS THAN 6 U/L (12-78); ANION GAP 11 MEQ/L (5-15); AST (GOT) 8 U/L (15-37); BICARBONATE 22.6 MEQ/L (21.0-32.0); BLOOD UREA NITROGEN 29 MG/DL (7-18); CHLORIDE 110 MEQ/L (98-107); GLOMERULAR FILTRATION RATE 48 ML/MIN (>89); POTASSIUM 4.1 MEQ/L (3.5-5.1); SODIUM (NA) 144 MEQ/L (136-145); TOTAL BILIRUBIN ADULT 1.4 MG/DL (0.2-1.0)
[2016-06-11 08:00] VITALS: BP 138/80; PULSE 69; RESP 18; TEMP 97.8; O2SAT 95
[2016-06-11 08:20] LABS: BURR CELLS 2+ (NORMAL)
[2016-06-11 08:21] LABS: OVALOCYTES 1+ (NORMAL); PLATELET ESTIMATE SMEAR NORMAL (NORMAL); PLATELET MORPHOLOGY NORMAL (NORMAL); SCAN/DIFF AUTO DIFF CONFIRMED
[2016-06-11] MEDS ORDERED: WALKER WHEELS/F1 MIS (09:24)
[2016-06-11] MEDS ORDERED: CLIN1CAP6 PO (09:32)
[2016-06-11] MEDS ORDERED: CEFT250T8 PO (09:32)
[2016-06-11] MEDS ORDERED: OXYC1TAB63 PO (09:32)
[2016-06-11] MEDS ORDERED: PERI8.6T PO (09:32)
--- NOTE | 2016-06-11 09:46 | HHI.DS ---
Discharge Summary Admission Date Jun 07, 2016 at 15:13 Discharge Date: Jun 11, 2016 Admitting Diagnosis ANN, dehydration. (1) Chronic myelogenous leukemia (CML), [id number] ICD Code: C92.10 (2) Kidney stone ICD Code: N20.0 (3) Abdominal pain ICD Code: R10.9 (4) Ureterolithiasis ICD Code: N20.1 (5) CKD (chronic kidney disease), stage III ICD Code: N18.3 (6) Hydronephrosis of left kidney ICD Code: N13.30 (7) ANN (acute kidney injury) ICD Code: N17.9 (8) Coagulopathy ICD Code: D68.9 Procedures None Brief History - From Admission 86-year-old gentleman with a known history of mild cognitive impairment has come in with left lower quadrant abdominal pain over the last 4 days. He had some nausea and constipation which was worse when he ate. He denied emesis, melena or hematuria. Patient had come to the emergency room 2 days in a row for evaluation of same. Abdominal CT scan showed a 4 mm obstructing renal stone. Patient was admitted through the emergency room for further evaluation of his severe abdominal pain which is relieved with resting his bowels and aggravated with eating. CBC/BMP: 06/11/16 0533 06/11/16 0533 Significant Findings Laboratory Tests Test 06/10/16 06/11/16 06:52 05:33 White Blood Count 12.3 TH/MM3 21.0 TH/MM3 (4.0-11.0) (4.0-11.0) Red Blood Count 3.93 MIL/MM3 6.96 MIL/MM3 (4.50-5.90) (4.50-5.90) Hemoglobin 12.6 GM/DL (13.0-17.0) Hematocrit 37.5 % 54.5 % (39.0-51.0) (39.0-51.0) Neutrophils (%) (Auto) 78.2 % 90.8 % (16.0-70.0) (16.0-70.0) Lymphocytes (%) (Auto) 7.8 % 2.6 % (9.0-44.0) (9.0-44.0) Monocytes (%) (Auto) 13.0 % (0.0-8.0) Neutrophils # (Auto) 9.6 TH/MM3 19.1 TH/MM3 (1.8-7.7) (1.8-7.7) Monocytes # (Auto) 1.6 TH/MM3 (0-0.9) Potassium Level 3.4 MEQ/L (3.5-5.1) Creatinine 0.57 MG/DL 1.40 MG/DL (0.60-1.30) (0.60-1.30) Aspartate Amino Transf 12 U/L (15-37) 8 U/L (15-37) (AST/SGOT) Alanine Aminotransferase 9 U/L (12-78) LESS THAN 6 (ALT/SGPT) U/L (12-78) Albumin 2.4 GM/DL 2.7 GM/DL (3.4-5.0) (3.4-5.0) Mean Corpuscular Volume 75.5 FL (80.0-100.0) Mean Corpuscular Hemoglobin 23.1 PG (27.0-34.0) Mean Corpuscular Hemoglobin 30.6 % Concent (32.0-36.0) Red Cell Distribution Width 21.9 % (11.6-17.2) Lymphocytes # (Auto) 0.5 TH/MM3 (1.0-4.8) Eosinophils # (Auto) 0.7 TH/MM3 (0-0.4) Ovalocytes 1+ (NORMAL) Esmond Cells 2+ (NORMAL) Chloride Level 110 MEQ/L (98-107) Blood Urea Nitrogen 29 MG/DL (7-18) Estimat Glomerular Filtration 48 ML/MIN (>89) Rate Calcium Level 8.2 MG/DL (8.5-10.1) Total Bilirubin 1.4 MG/DL (0.2-1.0) Alkaline Phosphatase 39 U/L (45-117) Total Protein 4.6 GM/DL (6.4-8.2) Imaging Last Impressions Gall Bladder Ultrasound 06/08/16 0000 Signed Impressions: Service Date/Time: Wednesday, June 08, 2016 17:19 - CONCLUSION: 1. Thick-walled gallbladder with pericholecystic fluid suggesting possible cholecystitis. Clinical correlation is recommended. A hepatobiliary scan may be helpful to confirm cystic duct obstruction if clinically indicated. 2. Hydronephrosis of the left kidney with multiple renal calculi noted on the left. The largest calculi measure 16 and 14 mm. 3. Large left renal cyst measuring 9.3 cm. 4. Hepatomegaly and mild fatty infiltration. 5. Bidirectional flow within a dilated main portal vein. 6. Left lobe hepatic cyst and right renal cysts. Saleem Juarez MD Abdomen/Pelvis CT 06/07/16 1008 Signed Impressions: Service Date/Time: May 11:39 - CONCLUSION: 1. Moderate hydronephrosis on the left with possible obstructing calcified distal ureteral calculus measuring 4 mm. Clinical correlation is recommended. 2. Massive splenomegaly. 3. Multiple calcified non-obstructing left renal calculi. 4. Bilateral renal cysts. 5. Cholelithiasis. 6. Small left pleural effusion and tiny right pleural effusion. 7. Bibasilar atelectasis and/or fibrotic scarring. 8. Cardiomegaly and coronary artery calcifications. 9. Degenerative changes and scoliosis of the thoracolumbar spine. 10. Minimal ascites within the pelvis. Saleem Juarez MD Chest X-Ray 06/07/16 0000 Signed Impressions: Service Date/Time: May 12:03 - CONCLUSION: 1. Cardiomegaly. 2. Elevation of the left hemidiaphragm which is chronic. 3. No acute focal pulmonary infiltrate or pulmonary vascular congestion. Saleem Juarez MD PE at Discharge GENERAL: Well-nourished, well-developed pleasant elderly male patient. SKIN: Warm and dry. He has a morbilliform rash over his back. HEAD: Normocephalic. EYES: No scleral icterus. No injection or drainage. Some subconjunctival hemorrhage of the right eye. NECK: Supple, trachea midline. No JVD or lymphadenopathy. CARDIOVASCULAR: Regular rate and rhythm without murmurs, gallops, or rubs. RESPIRATORY: Breath sounds equal bilaterally. No accessory muscle use. GASTROINTESTINAL: Abdomen soft, non-tender, nondistended. No right upper quadrant tenderness. EXTREMITIES: Trace pedal edema. NEUROLOGICAL: Awake, alert, and oriented to month, date, year. Appears cognitively sharp today. Hospital Course The patient was admitted. Urology and general surgery were consulted. Abdominal ultrasound was obtained which showed a thick-walled gallbladder with pericholecystic fluid suggesting possible cholecystitis. HIDA scan was recommended. Also showed hydronephrosis of the left kidney with multiple renal calculi. 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 The patient was therefore not a good surgical candidate and the patient and his did not want to pursue any surgical procedures including cholecystostomy tube or nephrostomy tube. I did discuss his care with surgery Dr. Marcus this morning who was not convinced that the patient had cholecystitis given his absence of laboratory finding suggestive of this, however hydroscan was pending. This morning the patient and his are very desirous of him going home and declined any further tests. The patient states "I am 86 and have lived a full life. Why won't you let me go home?"' The patient and his states that he has not had any further abdominal pain since being admitted to the hospital and the only reason that he came to the hospital was to have his pain controlled. The patient's states that the patient at this point in time refuses any other workup including refusing bone marrow biopsy with his oncologist. I did discuss in detail with the patient as well as his at bedside and explained that if this is acute cholecystitis that he will likely continue to get worse and may have pain again and may actually from this. The patient states "I do not care, I have had a full life." Patient and his would like to go home and are agreeable to hospice. The patient did ambulate 200 feet with physical therapy. They have a walker at home. They do not want to wait for hospice to see them here in the hospital preferring to go home right away rather than wait for hospice to see them and the hospital. They would like hospice to come to their house. The patient's does request pain medicines as well as antibiotics. Of note the patient has developed a morbilliform rash on his back which may be a drug rash. I will thus change his antibiotics were Flagyl and Levaquin to clindamycin and Ceftin. The patient is instructed to follow-up with his primary care provider is the patient's requests a lift for the patient. I spoke with case management and apparently this must be arranged through the PCP. He does have a walker at home and is transferring on his own. Pt Condition on Discharge: Stable Discharge Disposition: Hospice/ Home Discharge Time: > 30 minutes Discharge Instructions DIET: Follow Instructions for: Heart Healthy Diet Activities you can perform: Regular-No Restrictions New Medications: Cefuroxime (Ceftin) 250 Mg Tab 250 MG PO BID Infection #14 Ref 0 TAB Clindamycin (Clindamycin) 300 Mg Cap 300 MG PO TID Infection #21 Ref 0 CAP Sennosides-Docusate Sodium (Darby-Colace) 8.6-50 Mg Tab 1 TAB PO BID Constipation #20 Ref 0 TAB Walker with Front Wheels (Walker with Front Wheels) 1 Mis Mis 1 EA .ROUTE DIRECTED #1 Ref 0 EA Oxycodone-Acetaminophen (Oxycodone-Acetaminophen) 5-325 mg Tab 1 TAB PO Q4H PRN pain #30 TAB Continued Medications: Aspirin (Aspirin) 81 Mg Tabdr 81 MG PO DAILY TAB Doxazosin (Doxazosin) 2 Mg Tab 2 MG PO HS #30 Ref 0 TAB Bibiana Lima MD Jun 11, 2016 09:46
[2016-06-11] MEDS ORDERED: BENA25TA3 PO (10:11)
[2016-06-11] MEDS ORDERED: PRED20 PO (10:11)
--- NOTE | 2016-06-12 07:24 | MB ---
cc: MERRILL HENRY MD DATE OF CONSULTATION 06/10/2016 REASON FOR CONSULTATION Rule out acute cholecystitis. HISTORY OF PRESENT ILLNESS The patient is an 86-year-old male mild cognitive impairment, somewhat complicated medical history who presents with a 4-day history of abdominal pain. The patient states primarily his pain is located on the left side and somewhat diffusely in the abdomen. He states the pain is somewhat dull comes and goes. It occurs somewhat constantly. He does have some relief with pain medication and states some pain with food again primarily on the left side. He has not had significant pain like this before, but came to the emergency department for further evaluation. Of note, The patient does have some cognitive impairment. He denies any fevers or chills. He did have some nausea and also has occasional constipation. The patient had a further workup including CT scan showing moderate hydronephrosis on the left, kidney calculus, massive splenomegaly, patient with a history of leukemia. He is noted to have cholelithiasis, a small pleural effusion. Gallbladder ultrasound also obtained showing thickened gallbladder wall with some pericholecystic fluid also confirmed hydronephrosis of the kidney on the left. Mild hepatomegaly and fatty liver infiltration. Patient with a WBC of 12.3, INR 1.8, AST, ALT and alkaline phos and lipase all normal. PAST MEDICAL HISTORY 1. Stroke 2. Hypertension 3. Chronic kidney disease 4. BPH 5. Splenomegaly 6. Myelogenous leukemia 7. Kidney stones PAST SURGICAL HISTORY 1. Cataract surgery 2. Prostate surgery ALLERGIES The patient has known drug allergies. SOCIAL HISTORY The patient denies smoking, ETOH or IVDA. FAMILY HISTORY Denies hypertension, diabetes. MEDICATIONS See EMR. REVIEW OF SYSTEMS GENERAL: The patient denies fevers, chills. HEENT: Denies eye pain, ear pain or scleral icterus. NECK: Denies pain or swelling. CHEST: Denies cough or wheeze. CARDIAC: Denies palpitations or chest pain. GI: Complains of abdominal pain or organomegaly. MUSCULOSKELETAL: Denies arthralgia or myalgia. NEUROLOGIC: Denies numbness, tingling, history of stroke. PHYSICAL EXAMINATION GENERAL: The patient is in no acute distress. VITAL SIGNS: Temperature 97.4, pulse 68, respirations 20 and blood pressure 126/75, saturation 96% on room air. HEENT: PERRLA, pupils equal. Redness on bilateral cheeks. Moist mucous membranes. Trachea midline. NECK: Supple. HEART: S1, S2. Regular rhythm. LUNGS: Bilateral expansion. Clear. ABDOMEN: Soft. Scaphoid. Positive splenomegaly. No rebound. Left lower quadrant tenderness, nontender right upper quadrant. EXTREMITIES: Warm, well-perfused. PSYCH: Flat mood. : Within normal limits. INTEGUMENT: Dry skin. No significant lesions. LABORATORY WBC 12.3, hemoglobin 12.6, hematocrit 37.5, platelets 289. Sodium 138, potassium 3.4, chloride 99, BUN 8, creatinine 0.57, glucose 97, AST 8.4, ALT 12 and 9, T-bili is 0.4, lipase 50, INR 1.8, PTT 58.3. RADIOLOGY DATA Reviewed by myself. CT scan, moderate hydronephrosis left obstructing possible renal calculi, massive splenomegaly, multiple calcified nonobstructing left renal calculi, bilateral renal cysts, cholelithiasis, left small pleural effusion, right small pleural effusion, bilateral atelectasis, fibrotic scarring, cardiomegaly, Coronary artery calcifications, scoliosis. Gallbladder ultrasound, wall thickening, pericholecystic fluid, hydronephrosis, large renal cyst. ASSESSMENT The patient has multiple medical issues, complex medical history and somewhat poor historian complaining of abdominal pain. PLAN After a full radiologic laboratory assessment, the patient and primary team consulted to evaluate and rule out acute cholecystitis, cholelithiasis. The patient does have some cholelithiasis and questionable thickening of wall with some fluid. The patient has no clinical evidence of acute cholecystitis. She has no relation to right upper quadrant pain with p.o. intake. Exam is somewhat difficult due to the patient being a poor historian and the fact that he has somewhat of distracting other pain to the spleen and kidneys. At this point, low suspicion for acute cholecystitis. Recommend possibly obtaining a HIDA scan to further evaluate the gallbladder. MD RIZWAN Orellana/WANG /7:55 PM /7:02 AM
== END 2016-06-11 10:14 | disposition home or self-care (01) | DRG 841 ==
LOC: PHED 10:02 → PHEDA 13:03 → OBSVTOIN 15:13 → PH3B 15:57
PROVIDERS: ADMIT Family Medicine; ATTEND Family Medicine
DX: C92.10 Chronic myeloid leukemia, BCR/ABL-positive, not having achieved remission (principal); N13.2 Hydronephrosis with renal and ureteral calculous obstruction; N17.9 Acute kidney failure, unspecified; J90 Pleural effusion, not elsewhere classified; D68.9 Coagulation defect, unspecified; K80.00 Calculus of gallbladder with acute cholecystitis without obstruction; N18.3 Chronic kidney disease, stage 3 (moderate); F03.90 Unspecified dementia, unspecified severity, without behavioral disturbance, psychotic disturbance, mood disturbance, and anxiety; J98.11 Atelectasis; E86.0 Dehydration; K59.00 Constipation, unspecified; Z86.73 Personal history of transient ischemic attack (TIA), and cerebral infarction without residual deficits; I12.9 Hypertensive chronic kidney disease with stage 1 through stage 4 chronic kidney disease, or unspecified chronic kidney disease; I25.10 Atherosclerotic heart disease of native coronary artery without angina pectoris; H91.90 Unspecified hearing loss, unspecified ear; I51.7 Cardiomegaly; M41.9 Scoliosis, unspecified; N40.0 Benign prostatic hyperplasia without lower urinary tract symptoms; R16.1 Splenomegaly, not elsewhere classified; R16.0 Hepatomegaly, not elsewhere classified
CPT/HCPCS: 71010; 74177; 76705; 80048; 80053; 81001; 83605; 83690; 84484; 85025; 85610; 85730; 87040; 93005; 96360; J0696; J0744; J2270; J7030; J7040; Q9967